=== PATIENT | male | born 1965 | race Caucasian/White ===

== ENCOUNTER 2018-12-02 09:42 | Inpatient (IN) ==
--- NOTE | 2018-11-10 11:32 | Anesthesiology Consultation ---
Date of Service November 10, 2018 Assessment & Plan (1) Encounter for pre-operative examination: - No previous anesthesia/intubation records. - Note sent to PCP regarding abnormal CXR. Patient was seen by PCP on 11/17 and is being seen again on 11/24 for follow up BP check and then clearance will be provided. Will sign off on chart, but will need the PCP clearance to proceed with surgery. Chart Review Chart Review: Acceptable Risk for Surgery (Pending PCP clearance) and Patient seen in Pre Admission Testing Consults Requested none Teaching & Discussion Pre-Anesthesia Teaching/Discussion Notes: Instructed NPO after midnight before surgery, except medications with 15 cc of water. Medication instructions provided according to the PAT guidelines. History Surgery Operation Date: 12/02/18 08:50 Proposed Procedures p Right Total Knee Arthroplasty - Zion Wong MD Height/Weight Height: 5 ft 10 in Weight: 116.5 kg Allergies Allergy/AdvReac Type Severity Reaction Status Date / Time No Known Allergies Allergy Verified 11/07/18 16:38 Medications Home Medications Medication Instructions Recorded Confirmed Last Taken amlodipine 10 mg PO QAM 11/07/18 11/07/18 Unknown atenolol 100 mg PO QAM 11/07/18 11/07/18 Unknown doxazosin 2 mg PO QPM 11/07/18 11/07/18 Unknown hydrochlorothiazide 25 mg PO QAM 11/07/18 11/07/18 Unknown ibuprofen [Advil] 200 mg PO QID PRN 11/07/18 11/07/18 Unknown sertraline 50 mg PO QAM 11/07/18 11/07/18 Unknown Past Medical History Medical History History of GI bleed History of hiatal hernia Hypertension Osteoarthritis Exercise / Class Metabolic Activity II 4-5 Yardwork/Stairs/Walk up hill (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 Able to climb FOS, difficulty coming down stairs. Hunts. Denies CP or SOB. ) Past Surgical History Surgical History History of arthroscopy of right knee x 2 History of colonoscopy History of esophagogastroduodenoscopy (EGD) History of shoulder surgery Lt History of tooth extraction Past Anesthesia History No Hx of Anesthesia Complications and No Family Hx of Anesthesia Complications History of PONV No Hx of PONV and No Hx of Motion Sickness Social History Smoking Status: Never smoker Do You Dip or Chew Tobacco: No Hx Alcohol Use: Yes Alcohol type: beer alcohol intake frequency: a few times a week Hx Substance Use: No substance use type: does not use Review of Systems Patient denies chest pain, shortness of breath, dyspnea on exertion, reflux, cough, wheezing, palpitations. +Joint Pain (Knees, Elbows, "all of them") Physical Exam Vital Signs BP: 162/94 P: 71 R: 16 T: 98.8 SPO2: 96% on RA Constitutional + obese ENMT Mouth: + poor dentition Thyromental Distance: > or= 3.5 Finger Breadths (3.5) Mallampati Class: II Neck normal visual inspection, trachea midline and + facial hair (Advised - will trim facial hair); neck extension not limited Respiratory normal respiratory effort Auscultation: lungs clear to auscultation bilaterally Cardiovascular Rate/Rhythm: regular rate and regular rhythm Heart Sounds: no murmur Vessels: no carotid bruit Neurologic moves all extremities Psychiatric Orientation: alert and oriented x 3 Testing Laboratory Results 11/10/18 10:55 11/10/18 10:50 11/10/18 11/10/18 10:55 10:55 PT 10.3 INR 1.0 APTT 25.1 Blood Type O Positive Antibody Screen NEGATIVE Surgeon's office notified of elevated WBCs. Electrocardiogram Date: 11/10/18 Findings: + NSR @ (66) Chest X-Ray Date: 11/10/18 Findings: + NAD FINDINGS: Cardiomediastinal and hilar silhouettes are within normal limits. No pneumothorax, pleural effusion, focal airspace consolidation or overt pulmonary edema. Ill-defined 7 mm nodular focus projects over the right lung base. Mild degenerative changes of the shoulders and spine. IMPRESSION: 1. No acute process. 2. Ill-defined 7 mm nodular focus about the right lung base may reflect a nipple shadow or pulmonary lesion. This could be confirmed with follow-up radiograph with nipple markers.
--- NOTE | 2018-11-10 11:36 | PAT Medication Instructions ---
Medication Instructions Date of Service November 10, 2018 Home Medications amlodipine 10 mg PO QAM atenolol 100 mg PO QAM doxazosin 2 mg PO QPM hydrochlorothiazide 25 mg PO QAM ibuprofen [Advil] 200 mg PO QID NEEDED sertraline 50 mg PO QAM ASK your surgeon for instructions ibuprofen [Advil] 200 mg PO QID NEEDED DO NOT take the morning of surgery hydrochlorothiazide 25 mg PO QAM Take morning of surgery With a small sip of water, OTHERWISE NOTHING TO EAT OR DRINK AFTER MIDNIGHT: amlodipine 10 mg PO QAM atenolol 100 mg PO QAM sertraline 50 mg PO QAM Take evening before surgery doxazosin 2 mg PO QPM Other Notes If you have any questions please call us at [phone] or [phone] or [phone] or [phone]
[2018-11-10 11:58] LABS: Basophils # (auto) 0.02 K/uL (0-0.2); Basophils % (auto) 0.1 %; Eosinophils # (auto) 0.02 K/uL (0-0.5); Eosinophils % (auto) 0.1 %; Hematocrit (blood only) 43.2 % (42-52); Hemoglobin 14.8 g/dL (14.0-18.0); Immature Granulocytes # (auto) 0.05 K/uL (0.00-0.02); Immature Granulocytes % (auto) 0.4 %; Lymphocytes # (auto) 0.97 K/uL (1.2-3.4); Lymphocytes % (auto) 7.1 %; Mean Corpuscular Hgb Conc 34.3 g/dL (32-36); Mean Corpuscular Volume 94.5 fL (80-100); Mean Platelet Volume 11.1 fL (7.4-10.4); Monocytes # (auto) 0.64 K/uL (0.11-0.59); Monocytes % (auto) 4.7 %; Neutrophils # (auto) 11.95 K/uL (1.4-6.5); Neutrophils % (auto) 87.6 %; Platelet Count 239 K/uL (130-400); RDW Coefficient of Variation 12.1 % (11.5-14.5); RDW Standard Deviation 41.3 fL (36.4-46.3); Red Blood Count 4.57 M/uL (4.7-6.1); White Blood Count 13.65 K/uL (4.8-10.8)
[2018-11-10 12:05] LABS: Calcium 9.2 mg/dl (8.5-10.1); Creatinine Clr Calc Pharmacy 96.9 ml/min; Est GFR (African American) 85.2; Est GFR (Non-African American) 73.5; Potassium 4.4 mmol/L (3.5-5.1)
--- NOTE | 2018-11-10 12:07 | XRay Report ---
XR chest Pre-admission PA/Lat HISTORY: 53 years-old Male pat preoperative exam. No acute chest complaints COMPARISON: None available TECHNIQUE: PA and lateral views of the chest FINDINGS: Cardiomediastinal and hilar silhouettes are within normal limits. No pneumothorax, pleural effusion, focal airspace consolidation or overt pulmonary edema. Ill-defined 7 mm nodular focus projects over t he right lung base. Mild degenerative changes of the shoulders and spine. IMPRESSION: 1. No acute process. 2. Ill-defined 7 mm nodular focus about the right lung base may reflect a nipple shadow or pulmonary lesion. This could be confirmed with follow-up radiograph with nipple markers. The above report was generated using voice recognition software. It may contain grammatical, syntax o r spelling errors. Electronically signed by: Kyle Huerta M.D. 11/10/2018 12:06 PM
[2018-11-10 12:16] LABS: Partial Thromboplastin Ratio 0.9; Partial Thromboplastin Time 25.1 Seconds (21.0-31.0); Prothrombin Time 10.3 Seconds (9.0-12.0)
--- NOTE | 2018-11-26 22:18 | History and Physical Report ---
DATE OF ADMISSION: 12/02/2018 CHIEF COMPLAINT: Bilateral knee pain and discomfort, right side greater than left. HISTORY OF PRESENT ILLNESS: The patient is a 53-year-old gentleman who has had a long history of bilateral knee pain and discomfort that has gradually gotten worse over time. He has right knee scoped in 2 separate occasions with most recently one done in the . His knees have been bothering him for years. He has seen Dr. Ash in the past and had some injections which helped for about a week or two and that is it. He has nighttime pain. He cannot walk any significant distance. He has difficulty going up and down steps. He would like to proceed with definitive treatment. He does work for [employer] which requires a lot of walking and having difficulty doing this job. PAST MEDICAL HISTORY: 1. Hypertension. 2. Obesity, BMI 40. 3. Low back pain/sciatica. PAST SURGICAL HISTORY: 1. Right knee surgery x2, one in the , one in the . 2. Left shoulder scope. ALLERGIES: None. CURRENT MEDICINES: 1. Atenolol 10 mg a day. 2. Amlodipine 10 mg. 3. Allopurinol 100 mg. 4. Sertraline 50 mg a day. 5. Doxazosin 10 mg a day. SOCIAL HISTORY: A 53-year-old male. Works for [employer]. One drink per day. He does chew tobacco. Does not smoke. FAMILY HISTORY: Noncontributory. REVIEW OF HISTORY: Negative for diabetes, neurologic problem, vascular problem, or bleeding disorders. No chest pain or shortness of breath. No history of DVT or PE. PHYSICAL EXAMINATION: GENERAL: Reveals a healthy, pleasant, middle-aged male. He looks to be in pretty good health. HEENT: Benign. NECK: Supple. No lymphadenopathy. LUNGS: Clear to auscultation. HEART: Regular rate and rhythm. ABDOMEN: Soft, nontender, nondistended. EXTREMITIES: Grossly neurovascularly intact except as follows: Examination of both knees reveals patient walks independently. He has got varus alignment to both knees. Examination of the right knee reveals well healed arthroscopic portal sites. Small knee effusion. He has got bony hypertrophy medially. He is tender in medial joint line. Range of motion 5-125. No instability. No pain with hip motion. Examination of left knee reveals varus alignment. He has got bony hypertrophy medially. Small knee effusion. Range of motion 5-125. No instability. X-RAYS: X-rays of both knee revealed advanced bilateral knee DJD. The right side is a bit worse than the left. He has subchondral sclerosis. He has got complete loss of medial joint space. He has got osteophytes primarily in the medial compartment. ASSESSMENT: A 53-year-old male with history of right knee scope x2 with advanced bilateral knee degenerative joint disease, right side worse than the left. He has failed conservative treatment and would like to proceed with right knee replacement. PLAN: We will take him to the operating room with right total knee replacement. The risks and benefits of this procedure were explained to the patient including but not limited to DVT, PE, , infection, neurological injury, vascular injury, bleeding problem, pain, limited range of motion, stiffness, failure to relieve his symptoms, incomplete relief of symptoms, need for further surgery in future, fracture, leg length inequality, nerve palsy, etc. The patient understands and wishes to proceed. Informed consent was obtained. I did make him fully aware that his young age, this might need to be revised or redone in the future and he is aware of that. We talked about taking his atenolol the morning of surgery with a sip of water.
[~2018-12-02 09:42] MED LIST: ACETAMINOPHEN 500 MG TAB PO SCH; BUPIVACAINE 0.5 % 5 MG/1 ML PF 10ML VIAL ONE; BUPIVACAINE LIPOSOME/PF 266 MG, BUPIVACAINE/EPINEPHRINE 50 ML, SODIUM CHLORIDE 0.9% 30 ... INFIL SCH; BUPIVACAINE/EPINEPHRINE 0.25% 1:200,000 30 ML VIAL ONE; CEFAZOLIN 2000MG 2,000 MG/15 ML SYR IV SCH; DEXAMETHASONE SOD INJ 4 MG/ML VIAL ONE; FAMOTIDINE 20 MG TAB PO SCH; GABAPENTIN 300 MG x 2 PO SCH; LR 500ML BOLUS, THEN 15ML/HR IV SCH; LR 60ML/HR IV SCH; METOCLOPRAMIDE HCL 10 MG TABLET PO SCH; SCOPOLAMINE 1.5 MG TDSY TD SCH; TRANEXAMIC ACID 1,000 MG **IV Intra-op IV SCH
[2018-12-02] MEDS ORDERED: MIDAZOLAM HCL 1 MG/ML 2ML VIAL ONE ×2 (10:28→12:57)
[2018-12-02] MEDS ORDERED: fentaNYL citrate 100 MCG/2 ML VIAL ONE (10:28)
[2018-12-02] MEDS ORDERED: PROPOFOL IV EMULSION 10 MG/ML 20 ML VIAL IV ONE ×3 (10:34→14:27)
[2018-12-02] MEDS ORDERED: LIDOCAINE HCL 2% 2 ML VIAL/AMP(20MG/ML) INFIL ONE (10:34)
[2018-12-02] MEDS ORDERED: ONDANSETRON INJ 2 MG/ML 2 ML VIAL ONE (10:34)
--- NOTE | 2018-12-02 10:50 | History & Physical Bridge Note ---
Date of Service December 02, 2018 History & Physical Bridge Note I have examined the patient, reviewed the History & Physical and in the interval since the performance of the History & Physical I have noted the following changes of clinical significance: no changes noted
[2018-12-02] MEDS ORDERED: BUPIVACAINE 0.25% 30 ML VIAL ONE (10:54)
[2018-12-02] MEDS ORDERED: SODIUM CHLORIDE 0.9% PF 50 ML VIAL ONE (10:54)
[2018-12-02] MEDS ORDERED: BACITRACIN INJ 50,000 UNIT VIAL ONE (10:54)
[2018-12-02] MEDS ORDERED: BUPIVACAINE LIPOSOME 1.3% 266 MG/20 ML VIAL ONE (10:54)
[2018-12-02] MEDS ORDERED: EPINEPHrine INJ 1 MG/ML AMP ONE (10:55)
[2018-12-02] MEDS ORDERED: ONDANSETRON INJ 2 MG/ML 2 ML VIAL IV PRN ×2 (11:48→16:03)
[2018-12-02] MEDS ORDERED: fentaNYL citrate 100 MCG/2 ML VIAL IV PRN (11:48)
[2018-12-02] MEDS ORDERED: ATROPINE SULFATE 0.1 MG/ML 10ML SYR IV PRN (11:48)
[2018-12-02] MEDS ORDERED: ePHEDrine sulfate 50 MG/ML AMP IV PRN (11:48)
--- NOTE | 2018-12-02 14:34 | Post Operative Brief Note ---
Immediate Post Op Note v1 Date of Surgery December 02, 2018 Pre & Post Diagnosis Operation Date: 12/02/18 12:30 Pre-Op Diagnosis: Right Knee Advanced Degenerative Joint Disease Post-Op Diagnosis: Right Knee Advanced Degenerative Joint Disease Procedure Operation Date: 12/02/18 12:30 Actual Procedures p Right Total Knee Arthroplasty(Right) - Zion Wong MD Surgeon Zion Wong MD Guest Services Ambassador Hawk, PAC Estimated Blood Loss 50 Findings Consistent with Post-Op Diagnosis Fluids 1000 cc Specimens Right Knee Drains Olivia Catheter (A 16 Faroese olivia catheter was inserted by Alice Ramos RN, without difficulty, clear yellow urine obtained, output to be monitored by Anesthesia.) Anesthesia Type Spinal MAC Complications none Disposition Accompanied Patient To Recovery: No Disposition: Recovery Room
--- NOTE | 2018-12-02 14:57 | XRay Report ---
TWO VIEWS RIGHT KNEE CLINICAL HISTORY: Postoperative examination. FINDINGS: AP and crosstable lateral portable views of the right knee are obtained. A right knee arthr oplasty is in near anatomic alignment. There has been undersurface remodeling of the patella. No acut e fracture is seen. There are expected postoperative changes around the knee including skin clips, so ft tissue edema, and subcutaneous gas. IMPRESSION: Expected postoperative changes status post right knee arthroplasty. No acute fracture is seen. Electronically signed by: Jose Arias M.D. 12/02/2018 2:56 PM
--- NOTE | 2018-12-02 15:02 | Anesthesiology Progress Note ---
Date of Service December 02, 2018 Anesthesia Post Procedure Vital Signs Vital Signs: Temp Pulse Pulse Pulse Resp BP BP 12/02/18 14:56 73 17 111/59 L 12/02/18 14:55 65 12 12/02/18 14:52 66 13 109/55 L 12/02/18 14:50 67 17 12/02/18 14:46 66 17 98/56 L 12/02/18 14:45 69 18 12/02/18 14:42 66 19 12/02/18 14:41 62 20 107/57 L 12/02/18 14:39 36.7 C 68 64 16 89/69 L 107/57 L 12/02/18 10:05 37.1 C 65 20 144/82 H Pulse Ox 12/02/18 14:56 94 12/02/18 14:55 97 12/02/18 14:52 94 12/02/18 14:50 95 12/02/18 14:46 95 12/02/18 14:45 95 12/02/18 14:42 95 12/02/18 14:41 95 12/02/18 14:39 95 12/02/18 10:05 96 Pain Intensity Right Knee: Pain Intensity: 0 Transfer of Care Handoff Completed per policy Notes Mental Status: alert / awake / arousable Patient Amnestic to Procedure: Yes Nausea / Vomiting: adequately controlled Pain: adequately controlled Airway Patency, RR, SpO2: stable & adequate BP & HR: stable & adequate Hydration State: stable & adequate Neuraxial Anesthesia: was administered and sensory block is resolving Anesthetic Complications: no major complications apparent and Pt Satisfied with anesthetic care
[2018-12-02] MEDS ORDERED: OXYCODONE HCL IR 5 MG TAB (IMMEDIATE RELEASE) PO PRN (16:03)
[2018-12-02] MEDS ORDERED: HYDROmorphone INJ 0.5 MG/0.5 ML SYR IV PRN (16:03)
[2018-12-02] MEDS ORDERED: BISACODYL 10 MG SUPP PR PRN (16:03)
[2018-12-02] MEDS ORDERED: SODIUM CHLORIDE 0.9% 1000ML 1,000 ML IV SCH (16:03)
[2018-12-02] MEDS ORDERED: METOCLOPRAMIDE HCL INJ 5 MG/ML 2 ML VIAL IV PRN (16:03)
[2018-12-02] MEDS ORDERED: TAMSULOSIN HCL 0.4 MG CAP PO PRN (16:03)
[2018-12-02] MEDS ORDERED: MAGNESIUM HYDROXIDE SUSP 30 ML UDC PO PRN (16:03)
[2018-12-02] MEDS ORDERED: ALUMINUM/MAGNESIUM SUSP 30 ML UDC PO PRN (16:03)
[2018-12-02] MEDS ORDERED: NALOXONE HCL 0.4 MG/1 ML VIAL/CARP IV PRN (16:03)
[2018-12-02] MEDS: CHECK SCOPOLAMINE PATCH PLACEMENT SCH ×2 (16:09→23:51)
[2018-12-02] MEDS: KETOROLAC 30 MG/ML VIAL IV SCH ×2 (17:27→22:18)
[2018-12-02] MEDS: ASCORBIC ACID 500 MG TAB PO SCH (17:27)
[2018-12-02] MEDS: FERROUS GLUCONATE 324 MG TAB PO SCH (17:27)
[2018-12-02] MEDS: TAPENTADOL HCL ER 50 MG TABCR PO SCH (20:18)
[2018-12-02] MEDS: CEFAZOLIN 2000MG 2,000 MG/15 ML SYR IV SCH (20:18)
[2018-12-02] MEDS ORDERED: TRANEXAMIC ACID 1,000 MG in 0.9 % SODIUM CHLORIDE 100 ML IV SCH (20:30)
[2018-12-02] MEDS ORDERED: SENNA 8.6 MG TAB PO SCH (21:00)
[2018-12-02] MEDS ORDERED: DOXAZosin MESYLATE TAB 2 MG TAB PO SCH (21:00)
[2018-12-02] MEDS: ACETAMINOPHEN 500 MG TAB PO SCH (21:16)
[2018-12-02] MEDS: DOCUSATE SODIUM 100 MG CAP PO SCH (21:45)
[2018-12-02] MEDS: ASPIRIN 81 MG ECTAB PO SCH (21:45)
[2018-12-02] MEDS: cloNIDine HCl 0.1 MG TAB PO SCH (21:45)
--- NOTE | 2018-12-03 01:51 | Operative Report ---
DATE OF OPERATION: 12/02/2018 SURGEON: Zion Wong MD ADDICTION PROFESSIONAL: COLIN Flores PREOPERATIVE DIAGNOSIS: Right knee degenerative joint disease. POSTOPERATIVE DIAGNOSIS: Right knee degenerative joint disease. PROCEDURE PERFORMED: Right cemented posterior stabilized total knee arthroplasty. COMPLICATIONS: None. ESTIMATED BLOOD LOSS: 50 mL. FLUID REPLACEMENT: 1000 mL of crystalloid fluid replacement. TOURNIQUET TIME: 60 minutes at 300 mmHg. ANESTHESIA: Spinal with adductor canal block. DRAINS: None. SPECIMENS: Right knee sent for pathology. OPERATIVE INDICATIONS: The patient is a 53-year-old gentleman who has had a long history of right knee pain and degenerative joint disease. He has been through extensive conservative treatment including a knee arthroscopy in the past. He developed debilitating pain in his right knee, unresponsive to conservative treatment. Chronic ACL deficiency. He elected to proceed with a right total knee arthroplasty. OPERATIVE FINDINGS: Operative findings were advanced right knee DJD. Extensive grade 4 [id number] disease in the medial and patellofemoral compartments. A fixed varus deformity to his knee. A 10-degree flexion contracture with a moderate-sized knee effusion. He had osteophytes in the medial, posterior, and patellofemoral compartments. OPERATIVE IMPLANTS: Operative implants consisted of: 1. Biomet Vanguard size 70 right posterior stabilized femoral component. 2. A Biomet size 75 tibial plate. 3. A 10 mm posterior stabilized polyethylene insert. 4. A 31 x 8 all poly patella. OPERATIVE PROCEDURE: The patient was taken to the operating room, identified and placed on the operating table in supine position. All contact areas were appropriately padded. IV antibiotics were provided by anesthesia team. A spinal anesthetic and adductor canal block had been provided in the holding area. Portillo catheter was placed in sterile fashion. A right thigh tourniquet was then placed and the right lower extremity was then prepped and draped in the usual sterile fashion. The right leg was elevated and exsanguinated with Esmarch and tourniquet was placed at 300 mmHg. An anterior approach to the right knee was then performed through a longitudinal incision centered over the patella. Sharp dissection was carried through the subcutaneous tissue down to the level of the extensor mechanism. A medial parapatellar arthrotomy incision was made. Some subperiosteal dissection was carried out medially. The fat pad was resected from beneath the patellar tendon. The lateral patellofemoral ligament was released. The patella was everted and the knee was flexed. The osteophytes were taken off the distal femur. The ACL was absent. The PCL was released from the distal femur and the tibia subluxated anteriorly. The external tibial alignment jig was then placed in the anterior face of the tibia and adjusted 16 mm medially. Proximal tibial cut was made to remove about a millimeter of bone from the most deficient aspect of the medial tibial plateau. Some osteophytes were taken off medial and posteromedially. Tibia was sized to a size 75. Attention was then drawn to the femur. The distal femur was entered with a sharp drill bit. The intramedullary canal was suctioned. A right 6-degree valgus cutting guide was placed. Distal femoral cutting block was pinned in place. Distal femoral cut was made to take an additional 3 mm of bone off the distal femur. The femur was then sized to a size 70. We downsized this just slightly. The AP cutting block was pinned parallel to the epicondylar axis, which was 4 degrees of external rotation. The anterior cut, anterior chamfer cut, posterior cut, posterior chamfer cuts were made. Box cutting guide was placed and adjusted slightly laterally and the box cut was made. The knee was flexed. The remnants of the medial and lateral menisci were excised. The osteophytes were taken off the posterior aspect of the femur. A trial femoral component was placed. The tibial tray was pinned in maximum external rotation. The drill and stem punch were used to create a defect in the proximal tibia for the tibial tray. The knee was then trialed and the 10 mm insert fit most appropriately. Attention was then drawn to the patella. The patella was cleaned of all soft tissues. Patellar thickness measured 23 mm in thickness and was cut down to 15. It was sized to a size 31 patella. Lug holes were drilled for a 31 patella. Lateral osteophytes were removed. Patellar button was placed. The knee was taken through range of motion and patella tracked nicely with no thumbs test. Attention was then drawn toward placement of the permanent components. All trial components were removed. Bone plug was placed in the distal femur to limit blood loss. A double batch of Palacos G cement was mixed. A BiomAl[employer] Vanguard size 70 right posterior stabilized femoral component, size 75 tibial tray, a 10 mm posterior stabilized polyethylene insert, and a 31 x 8 all poly patella were then cemented in place. Knee was brought out into full extension until the cement hardened. A final cement check was then performed. Pericapsular tissues were injected with a total of 100 mL of a combination of 20 mL of Exparel, 30 mL of normal saline, 50 mL of 0.25% Marcaine with epinephrine. The patient did receive 1 gram of tranexamic acid. The joint was then let down for a tourniquet time of 60 minutes. Hemostasis was assured with the use of electrocautery. The extensor mechanism was then closed with a combination of #1 PDS suture and #1 Vicryl suture in [id number] fashion. Extensor mechanism was checked and found to be intact. The subcutaneous tissues were then closed with #2 Dexon suture in a buried interrupted fashion. The skin was closed with skin alejandro. Leg was then cleaned and dried and a sterile dressing of Xeroform, 4 x 4, sterile cast padding, and Doug bandage were applied. The patient was then transferred to the recovery room in stable condition. The patient tolerated the procedure well with no complications. All needle and sponge counts were correct at the end of the operation. I attest to the content of the Intraoperative Record and any orders documented therein. Any exception s are noted below.
[2018-12-03] MEDS: KETOROLAC 30 MG/ML VIAL IV SCH ×2 (05:33→10:11)
[2018-12-03] MEDS: CEFAZOLIN 2000MG 2,000 MG/15 ML SYR IV SCH (05:33)
[2018-12-03] MEDS: ACETAMINOPHEN 500 MG TAB PO SCH ×2 (05:33→13:49)
[2018-12-03 06:23] LABS: Hematocrit (blood only) 35.8 % (42-52); Hemoglobin 12.1 g/dL (14.0-18.0); Mean Corpuscular Hgb Conc 33.8 g/dL (32-36); Mean Corpuscular Volume 93.7 fL (80-100); Mean Platelet Volume 10.2 fL (7.4-10.4); Platelet Count 161 K/uL (130-400); RDW Coefficient of Variation 12.3 % (11.5-14.5); RDW Standard Deviation 41.5 fL (36.4-46.3); Red Blood Count 3.82 M/uL (4.7-6.1); White Blood Count 8.41 K/uL (4.8-10.8)
[2018-12-03 06:48] LABS: BUN Creatinine Ratio 11.3 (10-20); Calcium 8.5 mg/dl (8.5-10.1); Est GFR (Non-African American) 75.9; Potassium 3.9 mmol/L (3.5-5.1)
--- NOTE | 2018-12-03 08:20 | Anesthesiology Progress Note ---
Date of Service December 03, 2018 Anesthesia Post Procedure Vital Signs Vital Signs: Temp Pulse Pulse Pulse Resp BP BP 12/03/18 06:52 36.6 C 67 20 117/71 12/03/18 04:15 36.7 C 66 18 114/70 12/02/18 23:40 36.5 C 67 18 126/76 12/02/18 21:45 65 132/83 12/02/18 18:49 36.9 C 69 16 125/75 12/02/18 17:45 37.1 C 71 18 122/66 12/02/18 16:51 36.9 C 67 16 127/75 12/02/18 16:14 37.6 C H 62 16 129/76 12/02/18 15:45 36.9 C 69 18 125/73 12/02/18 15:36 72 17 132/66 12/02/18 15:35 68 16 12/02/18 15:31 66 11 L 114/61 12/02/18 15:30 65 13 12/02/18 15:26 67 15 107/61 12/02/18 15:25 65 13 12/02/18 15:21 68 16 113/60 12/02/18 15:20 69 15 12/02/18 15:16 37.2 C 66 13 118/64 12/02/18 15:15 66 14 12/02/18 15:11 64 14 113/67 12/02/18 15:10 61 17 12/02/18 15:06 63 18 111/63 12/02/18 15:05 63 14 12/02/18 15:01 67 13 118/64 12/02/18 15:00 64 13 12/02/18 14:56 73 17 111/59 L 12/02/18 14:55 65 12 12/02/18 14:52 66 13 109/55 L 12/02/18 14:50 67 17 12/02/18 14:46 66 17 98/56 L 12/02/18 14:45 69 18 12/02/18 14:42 66 19 12/02/18 14:41 62 20 107/57 L 12/02/18 14:39 36.7 C 68 64 16 89/69 L 107/57 L 12/02/18 10:05 37.1 C 65 20 144/82 H Pulse Ox 12/03/18 06:52 96 06/26/19 04:15 96 12/02/18 23:40 95 12/02/18 21:45 12/02/18 18:49 92 12/02/18 17:45 94 12/02/18 16:51 95 12/02/18 16:14 94 12/02/18 15:45 94 12/02/18 15:36 96 12/02/18 15:35 95 12/02/18 15:31 96 12/02/18 15:30 95 12/02/18 15:26 94 12/02/18 15:25 94 12/02/18 15:21 92 12/02/18 15:20 96 12/02/18 15:16 95 12/02/18 15:15 95 12/02/18 15:11 95 12/02/18 15:10 93 12/02/18 15:06 93 12/02/18 15:05 94 12/02/18 15:01 96 12/02/18 15:00 95 12/02/18 14:56 94 12/02/18 14:55 97 12/02/18 14:52 94 12/02/18 14:50 95 12/02/18 14:46 95 12/02/18 14:45 95 12/02/18 14:42 95 12/02/18 14:41 95 12/02/18 14:39 95 12/02/18 10:05 96 Pain Intensity Right Knee: Pain Intensity: 0 Notes Mental Status: alert / awake / arousable and participated in evaluation Patient Amnestic to Procedure: Yes Nausea / Vomiting: adequately controlled Pain: adequately controlled Airway Patency, RR, SpO2: stable & adequate BP & HR: stable & adequate Hydration State: stable & adequate Neuraxial Anesthesia: was administered and sensory block resolved Anesthetic Complications: no major complications apparent
[2018-12-03] MEDS: FERROUS GLUCONATE 324 MG TAB PO SCH (08:35)
[2018-12-03] MEDS: ASCORBIC ACID 500 MG TAB PO SCH (08:36)
[2018-12-03] MEDS: ASPIRIN 81 MG ECTAB PO SCH (08:36)
[2018-12-03] MEDS: DOCUSATE SODIUM 100 MG CAP PO SCH (08:36)
[2018-12-03] MEDS: TAPENTADOL HCL ER 50 MG TABCR PO SCH (08:38)
[2018-12-03] MEDS: cloNIDine HCl 0.1 MG TAB PO SCH (08:42)
[2018-12-03] MEDS ORDERED: AMLODIPINE BESYLATE 5 MG TAB PO SCH (09:00)
[2018-12-03] MEDS ORDERED: SERTRALINE HCL 50 MG TABLET PO SCH (09:00)
[2018-12-03] MEDS ORDERED: MULTIVITAMIN TAB PO SCH (09:00)
[2018-12-03] MEDS ORDERED: ATENOLOL 50 MG TABLET PO SCH (09:00)
[2018-12-03] MEDS ORDERED: hydroCHLOROthiazide 25 MG TAB PO SCH (09:00)
--- NOTE | 2018-12-03 20:59 | Progress Note ---
DATE: 12/03/2018 DATE OF SERVICE: 12/03/2018 SUBJECTIVE: A 53-year-old gentleman postop day #1 from right knee replacement. He is doing quite well. Really not having much pain at all. Therapy is going well. He is getting around quite well. He really wants to go home. No chest pain or shortness of breath. Not feeling dizzy or lightheaded. OBJECTIVE: VITAL SIGNS: Temperature 36.6. Vital signs stable. PHYSICAL EXAMINATION: GENERAL: Reveals a pleasant, middle-aged male. I visited with him. He is walking the halls this afternoon. He has walked around quite well and almost caring the walker. Almost walking normally. His dressing is clean, dry, and intact. He can dorsiflex and plantarflex his foot appropriately. He is neurologically intact. LABORATORY DATA: Hemoglobin is 12.1. Hematocrit 35.8. Electrolytes are stable. ASSESSMENT: A 53-year-old gentleman postop day #1 from a left knee replacement. He is doing remarkably well as far as getting around in therapy. His pain is controlled. PLAN: 1. DVT prophylaxis including thigh-high TEDs, SCDs, and aspirin twice a day. 2. PT/OT. Weight bear as tolerated. Right total knee protocol. 3. Pain control, doing pretty well with current pain regimen. Really not having much pain at all. 4. Disposition: He is planning to be discharged to home and would really like to go home this evening. He will have home health. I will see him back in 2 weeks postop.
--- NOTE | 2018-12-05 17:03 | Discharge Summary ---
ADMITTING PHYSICIAN AND SURGEON: Dr. Zion Wong. ADMITTING DIAGNOSIS: Right knee degenerative joint disease. SURGERY PERFORMED: Right total knee arthroplasty. SECONDARY DIAGNOSES: Hypertension, obesity, low back pain, sciatica. CONSULTS: None obtained. HISTORY AND PHYSICAL EXAMINATION: Well documented in the patient's chart. HOSPITAL COURSE: The patient admitted on 12/02/2018 and underwent total knee arthroplasty, tolerated the procedure well. There were no complications. He was transferred to the PACU postoperatively and later to the orthopedic floor for further care. He was given Ancef for antibiotic prophylaxis, ZAIRE stockings, SCDs and aspirin for DVT prophylaxis. Hemoglobin, hematocrit and vital signs were monitored during his hospital stay and remained stable. He did not require blood transfusions. There were no complications. By postoperative day 1, he was tolerating a regular diet, pain was controlled with oral pain medicine. He was participating in physical therapy. Postop day 1, he was discharged home, set up with home health services, given printed discharge instructions as well as new prescriptions for strength Tylenol, aspirin and oxycodone. Continue his home medicines. Continue physical therapy, weightbearing as tolerated, ZAIRE stockings. Follow up approximately 2 weeks postop or sooner if there are any problems or concerns.
== END 2018-12-03 15:54 | disposition home health service (06) | DRG 470 ==
LOC: EDSEX → ASU 09:42 → 3E 14:38